=== PATIENT | male | born 1970 | race Caucasian/White ===

== ENCOUNTER 2018-01-14 16:18 | Emergency (ER) | payer MEDICARE, OTHER ==
[~2018-01-14] VITALS: Ht 170.2 cm; Wt 121.6 kg
[~2018-01-14 16:18] MED LIST: ACET325 PO; ALBIPROI INH; ALBU.083IS IH; ALBU90OI INH; AZIT250 PO; AZIT500 PO; Amoxicillin500 MG PO; CODGUAEL PO; Cipro500 MG PO; Cleocin HCl300 MG PO; DIAZ2 PO; DOXY100 PO; Excedrin Extra1 EACH PO; FLUD.1 PO; Flonase 0.05% N16 GM; GUAI600T33 PO; HYDACE25S PR; HYDCOR20 PO; IBUP600 PO; INDO50 PO; MAGCIT300 PO; MECL25 PO; MONT10T PO; Naprosyn500 MG PO; OXYACE5T PO; PENVK500 PO; PRED10 PO; PRED20 PO; PROCODE120 PO; Percocet 5-3251 EACH PO; Peridex480 ML SS; RANI150 PO; RXOXYACE PO; SENN187 PO; Sudogest30 MG PO; XYZAL PO; [UNRECOGNIZED DRUG - OTHER]; [UNRECOGNIZED DRUG - OTHER]; xyzal
[2018-01-14 16:57] LABS: BASOPHILS ABSOLUTE AUTO 0.03 K/mm3 (0.00-0.23); BASOPHILS PERCENT AUTO 0 % (0-2); EOSINOPHILS ABSOLUTE AUTO 0.23 K/mm3 (0.00-0.68); EOSINOPHILS PERCENT AUTO 3 % (0-6); Hemoglobin 15.2 g/dL (13.5-17.5); IMMATURE GRAN ABSOLUTE AUTO 0.01 K/mm3 (0.00-0.10); IMMATURE GRAN PERCENT AUTO 0 % (0-1); LYMPHOCYTES ABSOLUTE AUTO 2.55 K/mm3 (0.84-5.20); LYMPHOCYTES PERCENT AUTO 33 % (21-46); MONOCYTES ABSOLUTE AUTO 0.82 K/mm3 (0.16-1.47); MONOCYTES PERCENT AUTO 11 % (4-13); Mean Corpuscular HGB 27.6 pg (26.0-34.0); Mean Corpuscular Volume 84 fL (80-100); NEUTROPHILS ABSOLUTE AUTO 4.04 K/mm3 (1.96-9.15); NEUTROPHILS PERCENT AUTO 53 % (41-73); Platelet Count 316 K/mm3 (150-400); RDW Coefficient Variation 13.3 % (11.7-14.2); RDW Standard Deviation 41.1 fL (35.1-46.3); White Blood Cell Count 7.68 K/mm3 (4.00-11.30)
[2018-01-14] MEDS ORDERED: TAMS.4ER PO (16:58)
[2018-01-14] MEDS ORDERED: IBUP800 PO (16:58)
[2018-01-14] MEDS ORDERED: Flovent 44 mc10.6 GM INH (16:58)
[2018-01-14 17:04] LABS: Alanine Aminotransfer (ALT/SGP 21 U/L (12-78); Albumin, Blood 3.4 g/dL (3.4-5.0); Albumin/Globulin Ratio 0.8 (0.8-1.8); Alk Phos 116 U/L (50-136); Anion Gap 7 mmol/L (6-16); Aspartate Aminotrans (AST/SGOT 30 U/L (12-37); Bilirubin, Total 0.3 mg/dL (0.1-1.0); Blood Urea Nitrogen 12 mg/dL (8-24); Bun/Creatinine Ratio 14.8 (12.0-20.0); CO2, Blood 27 mmol/L (21-32); Chloride, Blood 107 mmol/L (98-108); Creatinine, Blood 0.81 mg/dL (0.60-1.20); Globulin, Blood 4.4 g/dL (2.2-4.0); Glomerular Filtration Rate >60 (60-); Glucose, Blood 131 mg/dL (70-99); Potassium, Blood 3.6 mmol/L (3.5-5.5); Sodium, Blood 141 mmol/L (136-145); Total Protein, Blood 7.8 g/dL (6.4-8.2)
== END 2018-01-14 18:04 | disposition home or self-care (01) ==
LOC: ER 16:18
PROVIDERS: Emergency Medicine
DX: S39.91XA Unspecified injury of abdomen, initial encounter (principal); R59.0 Localized enlarged lymph nodes; J44.9 Chronic obstructive pulmonary disease, unspecified; F17.210 Nicotine dependence, cigarettes, uncomplicated; Z86.73 Personal history of transient ischemic attack (TIA), and cerebral infarction without residual deficits; Z79.899 Other long term (current) drug therapy; X58.XXXA Exposure to other specified factors, initial encounter
CPT/HCPCS: 36415; 74177; 80053; 83690; 85025; 96374; 96375; 99284; J1170; J1885; J2405; J7030; Q9967

== ENCOUNTER 2019-04-25 14:49 | Emergency (ER) | payer MEDICARE, OTHER ==
[~2019-04-25] VITALS: Ht 170.2 cm; Wt 111.6 kg
[~2019-04-25 14:49] MED LIST changes: +ALBU2.5V5 PO; +Flovent 44 mc10.6 GM INH; +IBUP800 PO; +LOSA25 PO; +TAMS.4ER PO
[2019-04-25 17:08] LABS: BASOPHILS ABSOLUTE AUTO 0.05 K/mm3 (0.00-0.23); BASOPHILS PERCENT AUTO 1 % (0-2); EOSINOPHILS ABSOLUTE AUTO 0.31 K/mm3 (0.00-0.68); EOSINOPHILS PERCENT AUTO 4 % (0-6); Hematocrit 43.5 % (37.0-53.0); Hemoglobin 14.1 g/dL (13.5-17.5); IMMATURE GRAN ABSOLUTE AUTO 0.02 K/mm3 (0.00-0.10); IMMATURE GRAN PERCENT AUTO 0 % (0-1); LYMPHOCYTES ABSOLUTE AUTO 2.42 K/mm3 (0.84-5.20); LYMPHOCYTES PERCENT AUTO 30 % (21-46); MONOCYTES ABSOLUTE AUTO 0.64 K/mm3 (0.16-1.47); MONOCYTES PERCENT AUTO 8 % (4-13); Mean Corpuscular HGB 28.3 pg (26.0-34.0); Mean Corpuscular HGB Conc 32.4 g/dL (31.5-36.5); Mean Corpuscular Volume 87 fL (80-100); NEUTROPHILS ABSOLUTE AUTO 4.67 K/mm3 (1.96-9.15); NEUTROPHILS PERCENT AUTO 58 % (41-73); Platelet Count 229 K/mm3 (150-400); RDW Coefficient Variation 14.1 % (11.7-14.2); RDW Standard Deviation 45.4 fL (35.1-46.3); Red Blood Cell Count 4.99 M/mm3 (4.30-5.90); White Blood Cell Count 8.11 K/mm3 (4.00-11.30)
[2019-04-25] MEDS ORDERED: LOSARTAN-HCTZ1 EACH (17:14)
[2019-04-25] MEDS ORDERED: SERT25 (17:14)
[2019-04-25 18:46] LABS: Alanine Aminotransfer (ALT/SGP 18 U/L (12-78); Albumin, Blood 3.7 g/dL (3.4-5.0); Alk Phos 120 U/L (50-136); Anion Gap 5 mmol/L (6-16); Aspartate Aminotrans (AST/SGOT 23 U/L (12-37); Bilirubin, Total 0.3 mg/dL (0.1-1.0); Blood Urea Nitrogen 15 mg/dL (8-24); Bun/Creatinine Ratio 20.7 (12.0-20.0); CO2, Blood 28 mmol/L (21-32); Calcium, Blood 8.9 mg/dL (8.5-10.1); Chloride, Blood 109 mmol/L (98-108); Creatinine, Blood 0.72 mg/dL (0.60-1.20); Globulin, Blood 3.8 g/dL (2.2-4.0); Glomerular Filtration Rate >60 (60-); Glucose, Blood 90 mg/dL (70-99); Potassium, Blood 3.7 mmol/L (3.5-5.5); Sodium, Blood 142 mmol/L (136-145); Total Protein, Blood 7.5 g/dL (6.4-8.2)
== END 2019-04-25 19:20 | disposition home or self-care (01) ==
LOC: ER 14:49
PROVIDERS: Emergency Medicine; Physician Assistant
DX: R53.1 Weakness (principal); E86.0 Dehydration; J45.909 Unspecified asthma, uncomplicated; F17.210 Nicotine dependence, cigarettes, uncomplicated; Z88.6 Allergy status to analgesic agent; Z86.73 Personal history of transient ischemic attack (TIA), and cerebral infarction without residual deficits
CPT/HCPCS: 36415; 80053; 85025; 96360; 99284-25; J7030

== ENCOUNTER 2020-05-18 19:16 | Emergency (ER) | payer MEDICARE, OTHER ==
[~2020-05-18] VITALS: Ht 170.2 cm; Wt 108.9 kg
[~2020-05-18 19:16] MED LIST changes: +LOSARTAN-HCTZ1 EACH; +SERT25
[2020-05-18] MEDS ORDERED: Amoxicillin875 MG PO (20:03)
[2020-05-18] MEDS ORDERED: Norco 5-325 Ta1 EACH PO (20:03)
== END 2020-05-18 20:21 | disposition home or self-care (01) ==
LOC: ER 19:16
DX: K08.89 Other specified disorders of teeth and supporting structures (principal); Z88.5 Allergy status to narcotic agent; Z88.8 Allergy status to other drugs, medicaments and biological substances; J45.909 Unspecified asthma, uncomplicated; Z79.899 Other long term (current) drug therapy; Z86.73 Personal history of transient ischemic attack (TIA), and cerebral infarction without residual deficits; I10 Essential (primary) hypertension; F17.210 Nicotine dependence, cigarettes, uncomplicated
CPT/HCPCS: 99282; A9270-GY

== ENCOUNTER 2020-10-26 19:40 | Emergency (ER) | payer MEDICARE, OTHER ==
[~2020-10-26] VITALS: Ht 170.2 cm; Wt 108.9 kg
[~2020-10-26 19:40] MED LIST changes: +Amoxicillin875 MG PO; +Norco 5-325 Ta1 EACH PO
[2020-10-26] MEDS ORDERED: Veetids 500500 MG PO (20:31)
== END 2020-10-26 20:50 | disposition home or self-care (01) ==
LOC: ER 19:40
DX: K02.9 Dental caries, unspecified (principal); F17.210 Nicotine dependence, cigarettes, uncomplicated; Z79.899 Other long term (current) drug therapy; Z88.5 Allergy status to narcotic agent; Z88.8 Allergy status to other drugs, medicaments and biological substances; Z86.73 Personal history of transient ischemic attack (TIA), and cerebral infarction without residual deficits
CPT/HCPCS: 99282; A9270

== ENCOUNTER 2020-12-24 07:51 | Day surgery (SDC) | payer MEDICARE, OTHER ==
[~2020-12-24] VITALS: Ht 170.2 cm; Wt 115.0 kg
[~2020-12-24 07:51] MED LIST changes: +ALBU2.5V5 INH; +DOCU100 PO; +Ranitidine HCl150 M1 PO; +SERT100 PO; +SYMBICORT 160-4.6 GM INH; +Veetids 500500 MG PO
[2020-12-24] MEDS ORDERED: HYDCHL25 PO (08:18)
== END 2020-12-24 10:05 | disposition home or self-care (01) ==
LOC: ORSCSDS 07:51
PROVIDERS: Internal Medicine Gastroenterology
PROC: 0DBM8ZX Excision of Descending Colon, Via Natural or Artificial Opening Endoscopic, Diagnostic (ICD-10-PCS; principal; 2020-12-24 09:15)
PROC: 0DBK8ZX Excision of Ascending Colon, Via Natural or Artificial Opening Endoscopic, Diagnostic (ICD-10-PCS; principal; 2020-12-24 09:15)
DX: Z12.11 Encounter for screening for malignant neoplasm of colon (principal); D64.9 Anemia, unspecified; K64.8 Other hemorrhoids; K57.30 Diverticulosis of large intestine without perforation or abscess without bleeding; F17.210 Nicotine dependence, cigarettes, uncomplicated; E66.01 Morbid (severe) obesity due to excess calories; Z68.39 Body mass index [BMI] 39.0-39.9, adult; Z79.899 Other long term (current) drug therapy
CPT/HCPCS: 88305; J2704; J7120

== ENCOUNTER 2021-07-05 07:14 | Day surgery (SDC) | payer MEDICARE, OTHER ==
[~2021-07-05 07:14] MED LIST changes: +HYDCHL25 PO
[2021-07-05] MEDS ORDERED: IPRAT-ALBUT 0.5-3 ML INH (10:21)
[2021-07-05] MEDS ORDERED: XYZAL5 MG PO (10:22)
[2021-07-05] MEDS ORDERED: Viagra100 MG PO (10:24)
[2021-07-05] MEDS ORDERED: Chantix1 MG PO (10:24)
[2021-07-05] MEDS ORDERED: LOSA50 PO (10:28)
[2021-07-05] MEDS ORDERED: HYDROCHLOROTH12.5 MG PO (10:28)
[2021-07-05] MEDS ORDERED: TIZA4 PO (10:29)
[2021-07-05] MEDS ORDERED: IBUP800 PO (10:29)
--- NOTE | 2021-07-05 11:56 | NUR ---
PT STATES HE FEELS FINE. NO ADVERSE EFFECTS OF DRUG. BP CHANGES ARE NORMAL D/T HIS WFS. NO INCREASED SOB, BIOX 97% ON RA. DISCHARGED PT TO OUTER GLASS DOORS IN STABLE CONDITION.
== END 2021-07-05 11:45 | disposition home or self-care (01) ==
LOC: ATC 07:14
DX: U07.1 COVID-19 (principal); F17.210 Nicotine dependence, cigarettes, uncomplicated; Z88.5 Allergy status to narcotic agent; Z88.8 Allergy status to other drugs, medicaments and biological substances
CPT/HCPCS: 96365; Q0243

== ENCOUNTER 2021-07-07 11:19 | Emergency (ER) | payer MEDICARE, OTHER ==
[~2021-07-07] VITALS: Ht 170.2 cm; Wt 113.4 kg
[~2021-07-07 11:19] MED LIST changes: +Chantix1 MG PO; +HYDROCHLOROTH12.5 MG PO; +IPRAT-ALBUT 0.5-3 ML INH; +LOSA50 PO; +TIZA4 PO; +Viagra100 MG PO; +XYZAL5 MG PO
== END 2021-07-07 11:30 | disposition home or self-care (01) ==
LOC: ER 11:19
DX: U07.1 COVID-19 (principal); J45.909 Unspecified asthma, uncomplicated; G47.30 Sleep apnea, unspecified; F17.210 Nicotine dependence, cigarettes, uncomplicated; Z88.5 Allergy status to narcotic agent; Z88.8 Allergy status to other drugs, medicaments and biological substances; Z79.899 Other long term (current) drug therapy; Z86.73 Personal history of transient ischemic attack (TIA), and cerebral infarction without residual deficits
CPT/HCPCS: 99283

== ENCOUNTER 2023-06-12 11:22 | Emergency (ER) | payer MEDICARE, OTHER ==
[~2023-06-12] VITALS: Ht 170.2 cm; Wt 108.9 kg
[2023-06-12 11:52] LABS: BASOPHILS ABSOLUTE AUTO 0.04 K/mm3 (0.00-0.23); BASOPHILS PERCENT AUTO 1 % (0-2); EOSINOPHILS ABSOLUTE AUTO 0.24 K/mm3 (0.00-0.68); EOSINOPHILS PERCENT AUTO 3 % (0-6); Hematocrit 44.8 % (37.0-53.0); Hemoglobin 15.4 g/dL (13.5-17.5); IMMATURE GRAN ABSOLUTE AUTO 0.01 K/mm3 (0.00-0.10); IMMATURE GRAN PERCENT AUTO 0 % (0-1); LYMPHOCYTES PERCENT AUTO 29 % (21-46); MONOCYTES ABSOLUTE AUTO 0.83 K/mm3 (0.16-1.47); MONOCYTES PERCENT AUTO 11 % (4-13); Mean Corpuscular HGB 27.8 pg (26.0-34.0); Mean Corpuscular HGB Conc 34.4 g/dL (31.5-36.5); Mean Corpuscular Volume 81 fL (80-100); Mean Platelet Volume 8.9 fL (9.1-12.4); NEUTROPHILS ABSOLUTE AUTO 4.07 K/mm3 (1.96-9.15); NEUTROPHILS PERCENT AUTO 56 % (41-73); Platelet Count 211 K/mm3 (150-400); RDW Coefficient Variation 13.2 % (11.7-14.2); RDW Standard Deviation 38.7 fL (35.1-46.3); Red Blood Cell Count 5.53 M/mm3 (4.30-5.90); White Blood Cell Count 7.29 K/mm3 (4.00-11.30)
[2023-06-12 12:34] LABS: Albumin, Blood 3.9 g/dL (3.4-5.0); Bilirubin, Total 0.4 mg/dL (0.1-1.0); Bun/Creatinine Ratio 16.4 (12.0-20.0); Creatinine, Blood 0.67 mg/dL (0.60-1.20); Globulin, Blood 4.1 g/dL (2.2-4.0); Potassium, Blood 3.9 mmol/L (3.5-5.5)
[2023-06-12 13:00] VITALS: BP 147/95
[2023-06-12] MEDS ORDERED: FAMO20 PO (14:55)
== END 2023-06-12 15:00 | disposition home or self-care (01) ==
LOC: ER 11:22
PROVIDERS: Student in an Organized Health Care Education/Training Program
DX: R07.89 Other chest pain (principal); R10.13 Epigastric pain; R13.10 Dysphagia, unspecified; R07.0 Pain in throat; E27.40 Unspecified adrenocortical insufficiency; J45.909 Unspecified asthma, uncomplicated; G47.30 Sleep apnea, unspecified; K21.9 Gastro-esophageal reflux disease without esophagitis; F17.210 Nicotine dependence, cigarettes, uncomplicated; Z86.73 Personal history of transient ischemic attack (TIA), and cerebral infarction without residual deficits; Z79.51 Long term (current) use of inhaled steroids; Z88.5 Allergy status to narcotic agent; Z88.8 Allergy status to other drugs, medicaments and biological substances; Z79.899 Other long term (current) drug therapy
CPT/HCPCS: 71046; 80053; 83690; 83880; 84484; 85025; 87081; 87430; 93005; 93010; 99283-25

== ENCOUNTER 2024-12-28 07:54 | Emergency (ER) | payer MEDICARE ==
[~2024-12-28] VITALS: Ht 172.7 cm; Wt 108.9 kg
[~2024-12-28 07:54] MED LIST changes: +FAMO20 PO
[2024-12-28 08:09] VITALS: BP 116/96
[2024-12-28 09:01] LABS: CORONAVIRUS COVID-19 AG Negative (NEGATIVE); INFLUENZA A AG Negative (NEGATIVE); INFLUENZA B AG Negative (NEGATIVE)
[2024-12-28] MEDS ORDERED: BENZ100A PO (09:20)
[2024-12-28] MEDS ORDERED: OSEL75CA PO (09:20)
[2024-12-28] MEDS ORDERED: ONDA4ODT MM (09:20)
== END 2024-12-28 09:29 | disposition home or self-care (01) ==
LOC: ER 07:54
PROVIDERS: Emergency Medicine
DX: J06.9 Acute upper respiratory infection, unspecified (principal); F17.210 Nicotine dependence, cigarettes, uncomplicated; Z79.899 Other long term (current) drug therapy; Z79.84 Long term (current) use of oral hypoglycemic drugs; Z88.5 Allergy status to narcotic agent; Z88.8 Allergy status to other drugs, medicaments and biological substances
CPT/HCPCS: 87428-QW; 99283

== ENCOUNTER 2025-09-12 10:16 | Emergency (ER) | payer MEDICARE ==
[~2025-09-12] VITALS: Ht 170.2 cm; Wt 108.9 kg
[~2025-09-12 10:16] MED LIST changes: +BENZ100A PO; +ONDA4ODT MM; +OSEL75CA PO
[2025-09-12] MEDS ORDERED: Ketorolac Tromethamine 30mg Vial IV ONE (10:45)
[2025-09-12 11:20] LABS: Source, Urine Voided
[2025-09-12 11:28] LABS: BASOPHILS ABSOLUTE AUTO 0.04 K/mm3 (0.00-0.23); BASOPHILS PERCENT AUTO 1 % (0-2); EOSINOPHILS ABSOLUTE AUTO 0.19 K/mm3 (0.00-0.68); EOSINOPHILS PERCENT AUTO 2 % (0-6); Hematocrit 44.5 % (37.0-53.0); Hemoglobin 15.1 g/dL (13.5-17.5); IMMATURE GRAN ABSOLUTE AUTO 0.03 K/mm3 (0.00-0.10); IMMATURE GRAN PERCENT AUTO 0 % (0-1); LYMPHOCYTES ABSOLUTE AUTO 1.89 K/mm3 (0.84-5.20); LYMPHOCYTES PERCENT AUTO 24 % (21-46); MONOCYTES ABSOLUTE AUTO 0.73 K/mm3 (0.16-1.47); MONOCYTES PERCENT AUTO 9 % (4-13); Mean Corpuscular HGB Conc 33.9 g/dL (31.5-36.5); Mean Corpuscular Volume 85 fL (80-100); NEUTROPHILS ABSOLUTE AUTO 4.98 K/mm3 (1.96-9.15); NEUTROPHILS PERCENT AUTO 63 % (41-73); NRBC ABSOLUTE 0.00 K/mm3 (0.00-0.02); NRBC Auto 0.0 /100 WBC (0.0-0.2); Platelet Count 219 K/mm3 (150-400); RDW Coefficient Variation 12.9 % (11.7-14.2); RDW Standard Deviation 40.1 fL (35.1-46.3)
[2025-09-12 11:28] LABS: Bilirubin, Urine Neg (Neg); Color, Urine Yellow (P-Yellow); Glucose Qualitative, Urine Neg (Neg); Ketones, Urine Neg (Neg); Leukocyte Esterase, Urine Neg (Neg); Protein, Urine 1+ (Neg); Specific Gravity, Urine 1.015 (1.003-1.022); Urobilinogen, Urine 1+ (Normal)
[2025-09-12 11:41] LABS: White Blood Cells, Urine 0-2 /hpf (0-5)
[2025-09-12 12:02] LABS: Alanine Aminotransfer (ALT/SGP 27.0 U/L (12-78); Albumin, Blood 4.1 g/dL (3.4-5.0); Albumin/Globulin Ratio 1.1 (0.8-1.8); Anion Gap 8.0 mmol/L (3-11); Aspartate Aminotrans (AST/SGOT 37.0 U/L (12-37); Bilirubin, Total 0.6 mg/dL (0.1-1.0); Blood Urea Nitrogen 15.0 mg/dL (8-24); CO2, Blood 27.0 mmol/L (21-32); Calcium, Blood 9.1 mg/dL (8.5-10.1); Chloride, Blood 106.0 mmol/L (98-108); Creatinine, Blood 0.65 mg/dL (0.60-1.20); Globulin, Blood 3.9 g/dL (2.2-4.0); Glucose, Blood 97.0 mg/dL (70-99); Potassium, Blood 4.0 mmol/L (3.5-5.5); Sodium, Blood 137.0 mmol/L (136-145); Total Protein, Blood 8.0 g/dL (6.4-8.2)
[2025-09-12] MEDS ORDERED: IBUP800 PO (13:44)
[2025-09-12] MEDS ORDERED: ONDA4ODT MM (13:44)
[2025-09-12 14:46] VITALS: BP 120/83
== END 2025-09-12 14:48 | disposition home or self-care (01) ==
LOC: ER 10:16
PROVIDERS: Emergency Medicine
DX: K85.90 Acute pancreatitis without necrosis or infection, unspecified (principal); F17.210 Nicotine dependence, cigarettes, uncomplicated; J45.909 Unspecified asthma, uncomplicated; K21.9 Gastro-esophageal reflux disease without esophagitis; Z88.5 Allergy status to narcotic agent; Z88.8 Allergy status to other drugs, medicaments and biological substances
CPT/HCPCS: 36415; 74177; 80053; 81001; 83690; 85025; 93005; 93010; 96374-59; 99284-25; J1885; Q9967